=== PATIENT | male | born 2000 | race Caucasian/White ===

== ENCOUNTER 2020-05-28 20:49 | Emergency (ER) | payer BC ==
[~2020-05-28] VITALS: Wt 90.7 kg
[~2020-05-28 20:49] MED LIST: CLARITIN5 MG/5 ML PO; PRELONE5 MG/5 ML PO
== END 2020-05-28 21:54 | disposition home or self-care (01) ==
LOC: ED 20:49
DX: S61.412A Laceration without foreign body of left hand, initial encounter (principal); Z88.0 Allergy status to penicillin; W26.8XXA Contact with other sharp object(s), not elsewhere classified, initial encounter; Y93.89 Activity, other specified; Y92.89 Other specified places as the place of occurrence of the external cause; Y99.8 Other external cause status

== ENCOUNTER 2022-10-22 23:58 | Emergency (ER) | payer BC ==
[~2022-10-22] VITALS: Ht 185.4 cm; Wt 95.3 kg
== END 2022-10-23 04:00 | disposition home or self-care (01) ==
LOC: ED 23:58
DX: S01.111A Laceration without foreign body of right eyelid and periocular area, initial encounter (principal); Z88.0 Allergy status to penicillin; Z98.890 Other specified postprocedural states; X58.XXXA Exposure to other specified factors, initial encounter; Y93.72 Activity, wrestling; Y92.89 Other specified places as the place of occurrence of the external cause; Y99.8 Other external cause status